=== PATIENT | male | born 1940 | race Caucasian/White ===

== ENCOUNTER → 2016-06-29 | Outpatient (CLI) | payer MEDICARE, BC ==
--- NOTE | 2016-06-29 15:02 | RADRPT ---
PROCEDURE: XR bilateral knees. CLINICAL INDICATION: Knee pain TECHNIQUE: Three views of each knee are available for review. COMPARISON: None available FINDINGS: Right knee: There is severe osteoarthrosis involving the right medial tibial femoral compartment and mild osteoa rthrosis involving the patellofemoral compartment .This is associated with joint space narrowing, baig bchondral sclerosis and osteophytosis. Left knee: There is moderate to severe osteoarthrosis involving the left medial tibial femoral compartment and mild osteoarthrosis involving the patellofemoral compartment. This is associated with joint space na rrowing, subchondral sclerosis and osteophytosis. There is otherwise normal mineralization, architecture and alignment. No fractures are identified. No osseous lesions are identified. The soft tissues are unremarkable. IMPRESSION: Severe osteoarthrosis involving the right medial tibial femoral compartment and mild osteoarthrosis involving the patellofemoral compartment Moderate to severe osteoarthrosis involving the left medial tibial femoral compartment and mild oste oarthrosis involving the patellofemoral compartment. RPTAT: HGDB .Feliciano Horowitz MD, Date Time Electronically viewed and signed by .Feliciano Horowitz MD, on 06/29/2016 15:01 .B/
== END | disposition home or self-care (01) ==
LOC: HKI 14:09
PROVIDERS: ATTEND Orthopaedic Surgery
DX: M17.0 Bilateral primary osteoarthritis of knee (principal); M25.561 Pain in right knee
CPT/HCPCS: 73564; G0463

== ENCOUNTER → 2016-07-13 | Outpatient (CLI) | payer MEDICARE, BC | END | disposition home or self-care (01) | LOC: HKI 08:41 | PROVIDERS: ATTEND Orthopaedic Surgery | DX: Z01.818 Encounter for other preprocedural examination (principal); M17.11 Unilateral primary osteoarthritis, right knee; M25.561 Pain in right knee | CPT/HCPCS: 77073; G0463 ==

== ENCOUNTER 2016-07-21 05:26 | Inpatient (IN) | payer MEDICARE, BC ==
[2016-07-20 08:51] VITALS: BMI 27.8
[~2016-07-21] VITALS: Ht 182.9 cm; Wt 97.0 kg
[2016-07-21] VITALS (23 sets, daily range): BP systolic 98–141; BP diastolic 42–96; PULSE 60–95; RESP 13–20; Ht 182.9 cm; Wt 97.0 kg
[2016-07-21] MEDS ORDERED: traMADOL 50 MG TAB X 1 DOSE PO ONE (06:00)
[2016-07-21] MEDS ORDERED: TRANEXAMIC ACID IV ONE ×2 (06:00→19:30)
[2016-07-21] MEDS ORDERED: CELECOXIB 400 MG PO X1 DOSE PO ONE (06:00)
[2016-07-21] MEDS ORDERED: oxyCODONE (CR) 10 MG TAB [oxyCONTIN] X1 DOSE PO ONE (06:00)
[2016-07-21] MEDS ORDERED: SOD CHLORIDE 0.9% IV ONE ×2 (06:00→19:30)
[2016-07-21] MEDS ORDERED: CEFAZOLIN 2GM/50 ML (PMX) 50 ML X1 BEFORE INCISION IVPB ONE (06:00)
[2016-07-21] MEDS ORDERED: PREGABALIN 300 MG PO X1 PO ONE ×2 (06:30→15:30)
[2016-07-21] MEDS ORDERED: BACITRACIN 50000 UNITS INJ ONE (06:44)
[2016-07-21] MEDS ORDERED: VANCOMYCIN 1 GM INJ ONE ×2 (06:45→08:19)
[2016-07-21] MEDS ORDERED: SODIUM CL BACTERIOSTATIC 30 ML INJ ONE ×2 (06:45→08:19)
[2016-07-21] MEDS ORDERED: POLYMYXIN B 500000 UNIT INJ ONE (06:45)
[2016-07-21] MEDS ORDERED: LORA10TA3 PO (06:46)
[2016-07-21] MEDS ORDERED: LOSA100T7 PO (06:46)
[2016-07-21] MEDS ORDERED: FLUT16SP17 NASAL (06:46)
[2016-07-21] MEDS ORDERED: OMEP20CA16 PO (06:46)
[2016-07-21] MEDS ORDERED: ACYC400T2 PO (06:46)
[2016-07-21] MEDS ORDERED: LIDOCAINE 100 MG SYRINGE ONE (07:11)
[2016-07-21] MEDS ORDERED: NEOSTIGMINE 3 MG/3 ML SYRINGE ONE (07:11)
[2016-07-21] MEDS ORDERED: CEFAZOLIN 1 GM INJ ONE (07:11)
[2016-07-21] MEDS ORDERED: GLYCOPYRROLATE 1 MG INJ ONE (07:11)
[2016-07-21] MEDS ORDERED: ROCURONIUM 50 MG INJ ONE (07:11)
[2016-07-21] MEDS ORDERED: PROPOFOL 100 ML ONE (07:11)
[2016-07-21] MEDS ORDERED: FENTAnyl 50 MCG/ML VIAL ONE (07:12)
[2016-07-21] MEDS ORDERED: ONDANSETRON 4 MG INJ ONE (07:12)
[2016-07-21] MEDS ORDERED: DEXAMETHASONE 4 MG/ML 1 ML INJ ONE (07:12)
[2016-07-21] MEDS ORDERED: MIDAZOLAM 1 MG/ML 2 ML INJ ONE (07:12)
--- NOTE | 2016-07-21 07:15 | HPN ---
Date/Time of Note Date/Time of Note DATE: 07/21/16 TIME: 07:14 Interval H&P Admission Note Pt. seen H&P reviewed: No system changes No change from H&P on 07/13/16 by VERITO Lares MD Jul 21, 2016 07:15
[2016-07-21] MEDS ORDERED: PHENYLephrine (100 MCG/ML) 5ML SYG ONE (07:48)
[2016-07-21] MEDS ORDERED: ONDANSETRON 4 MG INJ IV PRN ×2 (08:30→10:00)
[2016-07-21] MEDS ORDERED: HYDROmorphONE (0.2 MG/ML) 10ML SYG IV PRN ×3 (08:30)
[2016-07-21] MEDS ORDERED: hydrALAzine 20 MG INJ IV PRN (08:30)
[2016-07-21] MEDS ORDERED: EPHEDrine SULFATE 50 MG/5 ML SYG IV PRN (08:30)
[2016-07-21] MEDS ORDERED: TRIMETHOBENZAMIDE 100 MG/ML VIAL IM PRN (08:30)
[2016-07-21] MEDS ORDERED: LABETALOL HCL 20MG INJ IV PRN (08:30)
[2016-07-21] MEDS ORDERED: MIDAZOLAM 1 MG/ML 2 ML INJ IV PRN (08:30)
[2016-07-21] MEDS ORDERED: DIPHENHYDRAMINE 50 MG INJ IV PRN (08:30)
[2016-07-21] MEDS ORDERED: MEPERIDINE 25 MG INJ IV PRN (08:30)
[2016-07-21] MEDS ORDERED: FENTAnyl 50 MCG/ML VIAL IV PRN ×3 (08:30)
[2016-07-21] MEDS: LACTATED RINGER'S 1,000 ML IV SCH ×4 (09:05→19:05)
[2016-07-21] MEDS ORDERED: BUPIVACAINE LIPOSOME/PF 266 MG/20 ML VIAL INFIL SCH ×2 (09:06→15:30)
[2016-07-21] MEDS: PAIN COCKTAIL-CEFUROXIME IRR SCH ×7 (09:06)
[2016-07-21] MEDS ORDERED: EXPAREL NOTE (BUPIVICAINE LIPOSOMAL) XX SCH ×2 (09:30→15:30)
[2016-07-21] MEDS ORDERED: NA PHOSPHATE/BIPHOS 133 ML ENEMA PR PRN (10:00)
[2016-07-21] MEDS ORDERED: oxyCODONE 5 MG TAB PO PRN (10:00)
[2016-07-21] MEDS ORDERED: NACL 0.9% 3 ML SYG IV SCH (10:00)
[2016-07-21] MEDS ORDERED: TRANEXAMIC ACID 960 MG in SOD CHLORIDE 0.9% 100 ML IVPB SCH (10:00)
[2016-07-21] MEDS ORDERED: HYDROmorphONE 1 MG/ML SYG IV PRN (10:00)
[2016-07-21] MEDS ORDERED: DIPHENHYDRAMINE 25 MG CAP PO PRN (10:00)
[2016-07-21] MEDS ORDERED: ASPIRIN (EC) 325 MG TAB PO ONE (10:00)
[2016-07-21] MEDS ORDERED: BISACODYL 10 MG SUPP PR PRN (10:00)
[2016-07-21] MEDS ORDERED: MAGNESIUM HYDROXIDE 30ML CUP PO PRN (10:00)
--- NOTE | 2016-07-21 10:13 | OPPN ---
Date/Time of Note Date/Time of Note DATE: 07/21/16 TIME: 10:11 Operative/Procedure Note Dictation # [id number] Pre-Operative Diagnosis Right Knee OA Post-Operative Diagnosis Same Procedure Right TKA Surgeon: VERITO LOERA MD Dye Range Operator: CB MAS PA-C Anesthesiologist: Raul Ospina M.D. Findings Severe OA Blood Usage/Administration None Implants/Grafts Depuy Attune TKA Estimated blood loss: 50 - 100 ml's Drains Hemovac x 1 Specimens Bone and soft tissue Complications: None Anesthesia type: spinal VERITO LOERA MD Jul 21, 2016 10:13
--- NOTE | 2016-07-21 10:14 | PN ---
Date/Time of Note Date/Time of Note DATE: 07/21/16 TIME: 10:12 Assessment/Plan Lines/Catheters IV Catheter Type (from Nrsg): Peripheral IV Assessment/Plan Assessment/Plan Stable in PACU, s/p right TKA -cont abx -pain meds -ASA/SCDs for DVT prophylaxis -OOB with PT -monitor drain -check AM labs -d/c stern in AM XR of the right knee is pending at this time Subjective 24 Hr Interval Summary Stable in PACU. Denies significant pain. Moving all extremities. Exam/Review of Systems Vital Signs Vitals Vital Signs Date Time Temp Pulse Resp B/P Pulse Ox O2 Delivery O2 Flow Rate FiO2 07/21/16 10:03 97.8 07/21/16 06:00 69 18 132/77 96 Room Air Exam Free Text/Dictation Dressing dry Incision clean, dry, and intact without redness or drainage Thigh soft 5/5 Quadriceps, Tibialis Anterior, EHL, Gastroc, Soleus, Peroneals Normal sensation Palpable DT/PT, CR <2 sec No distal edema Results Result Diagram: 07/21/16 1010 CB MAS PA-C Jul 21, 2016 10:14
[2016-07-21] MEDS: CEFAZOLIN 2 GM/50 ML (PMX) 50 ML IVPB SCH ×2 (10:19→18:11)
[2016-07-21 10:20] LABS: HEMOGLOBIN 14.8 g/dl (14.0-18.0)
[2016-07-21 10:34] LABS: CALCIUM 8.5 mg/dl (8.4-10.2); CREATININE 0.83 mg/dl (0.61-1.24); POTASSIUM 4.8 mmol/L (3.5-5.1)
[2016-07-21 10:40] LABS: ADD UMIC YES; URINE BILIRUBIN (Dip) NEGATIVE (NEGATIVE); URINE BLOOD (Dip) 1+ (NEGATIVE); URINE COLOR LT. YELLOW (YELLOW); URINE GLUCOSE (Dip) NEGATIVE (NEGATIVE); URINE KETONES (Dip) NEGATIVE (NEGATIVE); URINE LEUKOCYTE ESTERASE (Dip) 1+ (NEGATIVE); URINE NITRITE (Dip) NEGATIVE (NEGATIVE); URINE TOTAL PROTEIN (Dip) NEGATIVE (NEGATIVE); URINE UROBILINOGEN (Dip) 0.2 E.U./dL (0.1-1.0)
[2016-07-21 11:09] LABS: BACTERIA,URINE RARE
--- NOTE | 2016-07-21 11:17 | RADRPT ---
PROCEDURE: Right knee x-ray CLINICAL INDICATION: <<Study Reason>> TECHNIQUE: Two views of the right knee were obtained. COMPARISON: No. FINDINGS: The patient is status post total knee replacement . There are postsurgical changes in the subcutane ous soft tissues. There is a surgical drain place with skin kyle noted over the ventral surface of the knee. No effusion is identified. There is normal mineralization. No acute fracture or dislocation is seen. IMPRESSION: 1. Status post total right knee arthroplasty with no evidence of loosening. Postsurgical changes i ncluding subcutaneous emphysema , skin kyle and a drainage tube are noted in place and are unrema rkable. RPTAT:AAJJ Physician Alexsander Date Time Electronically viewed and signed by Physician Alexsander on 07/21/2016 11:17 ADELINA/
--- NOTE | 2016-07-21 11:32 | OPR ---
DATE OF OPERATION: 07/21/2016 PREOPERATIVE DIAGNOSIS: Right knee osteoarthritis. POSTOPERATIVE DIAGNOSIS: Right knee osteoarthritis. OPERATION PERFORMED: Right total knee arthroplasty. SURGEON: Verito Burrell MD HOME STAGER: BRIDGER Mariano COMPONENTS USED: DePuy Attune size 7 femoral component, size 7 tibial baseplate, 8 mm polyethylene insert, and a 38 patellar button. ANESTHESIA: Spinal plus general endotracheal intubation plus periarticular injection. ANESTHESIOLOGIST: Raul Ospina MD TOURNIQUET TIME: 62 minutes. ESTIMATED BLOOD LOSS: 50 mL. INTRAVENOUS FLUIDS: 3 liters of crystalloid. SPECIMENS: Bone and soft tissue. DRAINS: Hemovac x1. COMPLICATIONS: None. DISPOSITION: The patient tolerated the procedure well and was taken to the recovery room in stable condition. INDICATIONS: The patient is a 75-year-old gentleman who has had progressive worsening pain in the r ight knee with radiographic evidence of severe osteoarthritis. He has failed nonsurgical means of t reatment to control his pain including activity modifications, pain medications, intra-articular inj ections and ambulatory assist devices. Despite these measures, he has had worsening pain and I felt he would benefit from a total knee arthroplasty. The risks, benefits, and alternatives of the procedure were explained in detail to the patient. I ex plained the risks of the surgery to include but not be limited to, bleeding and possible need for bl ood transfusion; infection; pain; stiffness; neurovascular injury with possible numbness, weakness, and/or paralysis anywhere from the knee down to the toes; fracture; instability; dislocation; wear a nd/or loosening of the prosthesis and possible need for future revision; blood clots; pulmonary embo lism; and anesthetic complications such as heart attack, stroke, GI bleed, pneumonia, and/or . Ample time was allowed for the patient to ask questions, all of which were addressed and answered. T he patient understood the risks involved and wished to proceed. Informed consent was signed prior to the procedure. PROCEDURE: The patient's right knee was initialed with a marking pen in the preoperative area to id entify the correct operative site. The patient was brought to the operating room and transferred fro [facility] to the operating table where a spinal anesthetic was administered. The patient was then anesthetized and intubated. A York catheter was placed. A timeout was performed to confir m that the right leg was the correct operative site. The patient was given 2 g of Ancef within one h our prior to the procedure. A tourniquet was placed on the operative proximal thigh. The operative k nee and lower extremity were prepped and draped in the usual sterile fashion. The operative lower ex tremity was elevated and exsanguinated with an Esmarch tourniquet. The proximal thigh tourniquet was inflated to 300 mmHg. The knee was flexed. A midline incision was made and carried down through the subcutaneous tissue an d fat with sharp dissection. Limited medial and lateral flaps were raised. A median parapatellar art hrotomy was performed. Synovial fluid was normal in color and consistency. The patella was everted a nd the knee flexed. There were severe tricompartmental osteoarthritic changes noted. A medial releas e was performed at the joint line to the midcoronal plane. The ACL and PCL and remnants of the menis ci were excised. The stepped drill was used to open up the femoral canal which was irrigated and suc ked dry. The intramedullary guide selma was passed up the femur, and the distal cutting block was pinn ed into place for a 6-degree valgus cut, taking 10 mm of bone off distally. The oscillating saw was used to make the cut. The tibia was subluxed anteriorly. The tibial cutoff jig was placed over the center of the talus dis tally and over the junction of the medial and middle third of the tibial tubercle proximally. The gu brenda was pinned into place and the oscillating saw was used to make the cut. The tibia was sized. The extension gap was checked and accommodated the 8 mm spacer block with the knee in full extension. T here was no varus or valgus instability. At this point, the femur was sized with the posterior referencing guide. Two holes were drilled in 3 degrees of external rotation. The two holes were in line with the transepicondylar axis, perpendicu lar to Aurora's line, and in line with the tibial cutoff jig brought up with the knee flexed 90 d egrees and tensed with 2 lamina spreaders, suggesting the femoral rotation was correct. The four-in- one cutting block was pinned into place. The anterior and posterior cuts and chamfer cuts were made with the oscillating saw. The flexion gap was checked and accommodated the 8 mm spacer block at 90 d egrees. There was no varus or valgus instability, suggesting the flexion and extension gaps were now equal. The central box was cut out on the femur. The tibia was drilled and punched in proper rotation. Tria l components were placed into position with a trial insert. The patella was cut from 26 mm down to 1 5 mm and sized. Three holes were drilled and the trial button placed in position. With all the trial s now in place, the knee was taken through range of motion and came to full extension as evidenced b y the fact that with the foot on my abdomen and axial loading, there was no tendency for the knee to flex. The knee was able to be flexed to 125 degrees with good patellar tracking with no lateral til t or subluxation. At this point, I was satisfied with the overall range of motion, stability, and patellar tracking. The trials were removed. The real components were opened. Two bags of cement were mixed, one with an d one without premixed antibiotic. The knee was irrigated with antibiotic saline and sucked dry. Onc e the cement was in a doughy stage, the real components were cemented into place. The knee was held in full extension, and the patellar component was held with a patellar clamp. All excess cement was removed with curettes. As the cement was hardening, the synovial/capsular layer was infiltrated with a mixture of 150 mg of 0.5% Bupivacaine, 8 mg of Duramorph, 300 mcg of epinephrine, 30 mg of [place] l, 100 mcg of clonidine, 750 mg of cefuroxime and 86 mL of normal saline, followed by an injection o f 266 mg of liposomal Bupivacaine. A Hemovac drain was placed in the deep portion of the wound and brought out the anterolateral thigh. Once the cement was completely hardened, the trial liner was removed, and the real insert was opene d. The tourniquet was let down, and there was good hemostasis. The knee was then irrigated with a mi xture of Betadine/saline and then antibiotic saline with pulsatile lavage. The real insert was impac ilia into the tibia and reduced onto to the femur. The arthrotomy was closed with a few interrupted #1 Ethibond in a [id number] fashion, and then closed in a watertight fashion with a running #2 Stratafix suture. Knee flexion was checked against gravity and came to 125 degrees. The subcutaneous layer was irrigated and closed with 2-0 Stratafix, and then 3-0 Stratafix and the skin was closed with kyle. The wound was covered with an occlusi ve dressing, and secured with cast padding and a bias dressing. The drain was secured with 3-0 nylon . The sponge and needle counts were correct at the end of the case. The patient was then awakened, ext ubated, and taken to the recovery room in stable condition. Dictated By: VERITO DAMON/NTS Conf#: [id number] DID#: [id number]
[2016-07-21] MEDS ORDERED: TRANEXAMIC ACID IVPB SCH (13:30)
[2016-07-21] MEDS ORDERED: SOD CHLORIDE 0.9% IVPB SCH (13:30)
--- NOTE | 2016-07-21 13:51 | CONS ---
DATE OF ADMISSION: 07/21/2016 DATE OF CONSULTATION: 07/21/2016 Dr. Burrell: Thank you very much for allowing me to evaluate the above patient who just underwent right knee repl acement. HISTORICAL EVENTS: As you well know, this patient has had progressive disabling pain involving his right knee and for this elected to proceed with surgery. Postoperatively, he notes a slight cough t hat is not productive without wheezing, substernal chest pain, nausea, vomiting, or abdominal pain. MEDICATIONS: 1. Losartan 100 mg per day. 2. Acyclovir 400 mg per day. 3. Claritin 10 mg per day. 4. Omeprazole 20 mg per day. PAST MEDICAL HISTORY: Includes: 1. Hypertension, seasonal allergies, GERD, herpes simplex virus, polio of the left leg. PAST SURGICAL HISTORY: Prior appendectomy at age 14. Cataract surgery bilaterally. FAMILY HISTORY: Positive for lung cancer and pneumonia. SOCIAL HISTORY: Does not smoke, does drink some alcohol. He is a retired in real estate. ALLERGIES: NONE. PHYSICAL EXAMINATION: GENERAL: [place] male in no acute distress. VITAL SIGNS: BP 122/80, pulse 70, respirations are 20, he was afebrile. EYES: Extraocular muscles were full. The right upper eyelid was slightly swollen. NOSE, MOUTH, AND THROAT: Normal. NECK: Supple. There was no jugular venous distention, thyroid enlargement or adenopathy. Carotids 2+. LUNGS: Clear. HEART: Rhythm regular. ABDOMEN: Nontender. Liver and spleen were not palpable. No masses or tenderness were noted. EXTREMITIES: No edema. IMPRESSION: 1. Postoperative right knee replacement, stable. 2. History of hypertension. We will continue ARB and serial BP throughout. 3. Slight swelling involving the right eyelid, will observe. He has been using Cipro eyedrops prio r to admit. 4. History of gastroesophageal reflux disease. Will continue proton pump inhibitors. 5. We will follow daily for signs and symptoms of thromboembolic disease. Despite appropriate DVT prophylaxis. Dictated By: NATHALIE GRANDE/NTS Conf#: [id number] DID#: [id number]
[2016-07-21] MEDS: traMADol 50 MG TAB PO SCH ×2 (14:10→18:11)
[2016-07-21] MEDS: ACETAMINOPHEN 1000MG/100ML IV 100 ML IVPB SCH ×2 (14:10→18:11)
[2016-07-21] MEDS ORDERED: TRANEXAMIC ACID IVPB ONE (14:30)
[2016-07-21] MEDS ORDERED: SOD CHLORIDE 0.9% IVPB ONE (14:30)
[2016-07-21] MEDS ORDERED: LACTATED RINGER'S 1,000 ML IV SCH (15:30)
[2016-07-21] MEDS ORDERED: PAIN COCKTAIL-CEFUROXIME IRR SCH ×7 (15:30)
[2016-07-21] MEDS: PANTOPRAZOLE (EC) 40 MG TAB PO SCH (18:11)
[2016-07-21] MEDS: DOCUSATE SODIUM 100 MG CAP PO SCH (20:27)
[2016-07-21] MEDS: oxyCODONE 5 MG TAB PO PRN (20:28)
[2016-07-21] MEDS: PREGABALIN 25 MG CAP PO SCH (20:29)
[2016-07-22] MEDS: ACETAMINOPHEN 1000MG/100ML IV 100 ML IVPB SCH ×2 (00:13→06:22)
[2016-07-22] MEDS: traMADol 50 MG TAB PO SCH ×4 (00:13→18:09)
[2016-07-22 00:24] VITALS: BP 116/74; PULSE 76; RESP 17
[2016-07-22] MEDS: CEFAZOLIN 2 GM/50 ML (PMX) 50 ML IVPB SCH (02:03)
[2016-07-22] MEDS: oxyCODONE 5 MG TAB PO PRN ×5 (04:14→20:26)
[2016-07-22] MEDS: LACTATED RINGER'S 1,000 ML IV SCH ×4 (05:05→10:55)
[2016-07-22 05:57] LABS: HEMATOCRIT 36.8 % (42.0-52.0); HEMOGLOBIN 12.8 g/dl (14.0-18.0)
[2016-07-22 06:02] LABS: POTASSIUM 4.2 mmol/L (3.5-5.1)
[2016-07-22 06:05] LABS: CALCIUM 8.4 mg/dl (8.4-10.2); CREATININE 0.81 mg/dl (0.61-1.24)
[2016-07-22] MEDS: PANTOPRAZOLE (EC) 40 MG TAB PO SCH ×2 (06:21→18:09)
[2016-07-22 07:50] VITALS: BP 131/76; RESP 18
[2016-07-22] MEDS: PREGABALIN 25 MG CAP PO SCH ×2 (08:26→20:26)
[2016-07-22] MEDS: ASPIRIN (EC) 325 MG TAB PO SCH ×2 (08:27→20:26)
[2016-07-22] MEDS: LOSARTAN 50 MG TAB PO SCH (08:28)
[2016-07-22] MEDS: CELECOXIB 200 MG CAP PO SCH (08:29)
[2016-07-22] MEDS: ACYCLOVIR 400 MG TAB PO SCH (08:29)
[2016-07-22] MEDS: LORATADINE 10 MG TAB PO SCH (08:29)
[2016-07-22] MEDS: DOCUSATE SODIUM 100 MG CAP PO SCH ×2 (08:29→20:26)
--- NOTE | 2016-07-22 08:38 | CONS ---
Date/Time of Note Date/Time of Note DATE: 07/22/16 TIME: 08:35 Assessment/Plan Assessment/Plan Additional Assessment/Plan 1. Postoperative right knee replacement, stable. 2. History of hypertension, controlled 3. Slight swelling involving the right eyelid, improved and will resume cipro eye drops 4. History of gastroesophageal reflux disease, asx Consultation Date/Type/Reason Admit Date/Time Jul 21, 2016 at 05:26 Initial Consult Date Detailed Summary ENT: discharge (right uppper eye lid is less swollen and red) Respiratory: No cough Cardiovascular: no complaints Gastrointestinal: no complaints Genitourinary: no complaints Musculoskeletal: bone/joint pain (mild right knee pain) Exam/Review of Systems Vital Signs Vitals Vital Signs Date Time Temp Pulse Resp B/P Pulse Ox O2 Delivery O2 Flow Rate FiO2 07/22/16 07:50 99.0 90 18 131/76 94 07/22/16 00:24 Nasal Cannula 2.0 Intake and Output 07/21/16 07/21/16 07/22/16 15:00 23:00 07:00 Intake Total 3200 ml 2079.7 ml 2059.7 ml Output Total 565 ml 2735 ml 2700 ml Balance 2635 ml -655.3 ml -640.3 ml Exam Eyes: No other (mild redness and swelling right upper lid) Neck: No jvd Respiratory: clear to auscultation Cardiovascular: regular rate and rhythm Gastrointestinal: soft Extremities: No edema (and no calf tend bilat) Results Result Diagram: 07/22/16 0440 07/22/16 0440 Results 24 hrs Laboratory Tests Test 07/21/16 10:00 07/21/16 10:10 07/22/16 04:40 Urine Bacteria RARE Urine Bilirubin NEGATIVE Urine Clarity CLEAR Urine Color LT. YELLOW Urine Glucose NEGATIVE Urine Hemoglobin 1+ H Urine Ketones NEGATIVE Urine Leukocyte Esterase 1+ H Urine Microscopic RBC 2-5 Urine Microscopic WBC 0-2 Urine Nitrite NEGATIVE Urine Specific [place] <=1.005 L Urine Total Protein NEGATIVE Urine Urobilinogen 0.2 E.U./dL Urine pH 6.0 Anion Gap 15 13 Blood Urea Nitrogen 14 16 Calcium Level 8.5 8.4 Carbon Dioxide Level 26 27 Chloride Level 104 104 Creatinine 0.83 0.81 Glucose Level 121 96 Hematocrit 43.0 36.8 L Hemoglobin 14.8 12.8 L Potassium Level 4.8 4.2 Sodium Level 140 140 Medications Medications Current Medications Lactated Ringer's (Lr) 1,000 ml @ 100 mls/hr Q10H IV ; Start 07/21/16 at 09:05 Bupivacaine Liposome (Exparel 266 Mg/ 20 ml Vial) 266 mg INTRA-OP INFIL Last administered on 07/21/16 09:06; Admin Dose 266 MG; Start 07/21/16 at 09:06 Miscellaneous Information 1 ea NOTE XX ; Start 07/21/16 at 09:30 Acyclovir (Zovirax) 400 mg DAILY PO Last administered on 07/22/16 08:29; Admin Dose 400 MG; Start 07/22/16 at 09:00 Loratadine (Claritin) 10 mg DAILY PO Last administered on 07/22/16 08:29; Admin Dose 10 MG; Start 07/22/16 at 09:00 Losartan Potassium 100 mg 100 mg DAILY PO Last administered on 07/22/16 08:28 ; Admin Dose 100 MG; Start 07/22/16 at 09:00 Lactated Ringer's (Lr) 1,000 ml @ 125 mls/hr Q8H IV Last administered on 06:22; Admin Dose 125 MLS/HR; Start 07/21/16 at 09:56 Celecoxib 200 mg 200 mg DAILY PO Last administered on 07/22/16 08:29; Admin Dose 200 MG; Start 07/22/16 at 09:00 Acetaminophen (Ofirmev 1000mg/ 100ml Iv) 100 ml @ 400 mls/hr Q6 IVPB Last administered on 07/22/16 06:22; Admin Dose 400 MLS/HR; Start 07/21/16 at 12:00 ; Stop 07/22/16 at 11:59 Tramadol HCl (Ultram) 50 mg Q6 PO Last administered on 07/22/16 06:21; Admin Dose 50 MG; Start 07/21/16 at 12:00; Stop 07/24/16 at 11:59 Oxycodone HCl (Roxicodone) 5 mg Q4H PRN PO PAIN LEVEL 1-3; Start 07/21/16 at 10 :00 Oxycodone HCl (Roxicodone) 10 mg Q4H PRN PO PAIN LEVEL 4-7 Last administered on 07/22/16 08:27; Admin Dose 10 MG; Start 07/21/16 at 10:00 Hydromorphone HCl (Dilaudid) 1 mg Q3H PRN IV PAIN LEVEL 8-10; Start 07/21/16 at 10:00 Ondansetron HCl (Zofran Inj) 4 mg Q6H PRN IV NAUSEA AND/OR VOMITING; Start at 10:00 Bisacodyl (Dulcolax Supp) 10 mg Q12H PRN [place] CONSTIPATION; Start 07/21/16 at 10: 00 Magnesium Hydroxide (Milk Of Mag) 30 ml BID PRN PO CONSTIPATION; Start at 10:00 Sodium Biphosphate/ Sodium Phosphate (Fleet Enema) 133 ml DAILY PRN [place] CONSTIPATION; Start 07/21/16 at 10:00 Docusate Sodium (Colace) 100 mg BID PO Last administered on 07/22/16 08:29; Admin Dose 100 MG; Start 07/21/16 at 21:00 Diphenhydramine HCl (Benadryl) 25 mg Q6H PRN PO PRURITUS; Start 07/21/16 at 10: 00 Aspirin (Ecotrin) 325 mg BID PO Last administered on 07/22/16 08:27; Admin Dose 325 MG; Start 07/22/16 at 09:00 Pantoprazole (Protonix Tab) 40 mg BID@06,18 PO Last administered on 07/22/16 06:21; Admin Dose 40 MG; Start 07/21/16 at 18:00 Pregabalin (Lyrica) 50 mg BID PO Last administered on 07/22/16 08:26; Admin Dose 50 MG; Start 07/21/16 at 21:00 NATHALIE NARVAEZ MD Jul 22, 2016 08:38
--- NOTE | 2016-07-22 08:40 | PN ---
Date/Time of Note Date/Time of Note DATE: 07/22/16 TIME: 08:39 Assessment/Plan Lines/Catheters IV Catheter Type (from Nrsg): Peripheral IV York in Place (from Nrsg): Yes Assessment/Plan Assessment/Plan Stable POD #1, s/p right TKA -d/c abx -pain meds -ASA/SCDs -OOB with PT -drain removed -check AM labs -d/c planning. Patient would like to go to [facility] Subjective 24 Hr Interval Summary Doing well. No acute overnight events. Denies any pain. Made excellent progress with PT. VSS, afebrile. Would like to go to [facility] upon discharge. Exam/Review of Systems Vital Signs Vitals Vital Signs Date Time Temp Pulse Resp B/P Pulse Ox O2 Delivery O2 Flow Rate FiO2 07/22/16 07:50 99.0 90 18 131/76 94 07/22/16 00:24 Nasal Cannula 2.0 Intake and Output 07/21/16 07/21/16 07/22/16 15:00 23:00 07:00 Intake Total 3200 ml 2079.7 ml 2059.7 ml Output Total 565 ml 2735 ml 2700 ml Balance 2635 ml -655.3 ml -640.3 ml Exam Free Text/Dictation Hemovac: 400cc Dressing dry Incision clean, dry, and intact without redness or drainage Thigh soft 5/5 Quadriceps, Tibialis Anterior, EHL, Gastroc, Soleus, Peroneals Normal sensation Palpable DT/PT, CR <2 sec No distal edema Results Result Diagram: 07/22/1643907/22/16439 CB MAS PA-C Jul 22, 2016 08:40
[2016-07-22] MEDS: CIPROFLOXACIN 0.3% 2.5 ML OPH RIGHT EYE SCH ×4 (11:04→20:27)
[2016-07-22 16:20] LABS: ADD UMIC YES; URINE BILIRUBIN (Dip) NEGATIVE (NEGATIVE); URINE BLOOD (Dip) 1+ (NEGATIVE); URINE COLOR LT. YELLOW (YELLOW); URINE GLUCOSE (Dip) NEGATIVE (NEGATIVE); URINE KETONES (Dip) NEGATIVE (NEGATIVE); URINE LEUKOCYTE ESTERASE (Dip) TRACE (NEGATIVE); URINE NITRITE (Dip) NEGATIVE (NEGATIVE); URINE TOTAL PROTEIN (Dip) NEGATIVE (NEGATIVE); URINE UROBILINOGEN (Dip) 0.2 E.U./dL (0.1-1.0)
[2016-07-22 16:32] LABS: BACTERIA,URINE FEW
[2016-07-22 20:03] VITALS: BP 124/70; RESP 19
[2016-07-23] MEDS: traMADol 50 MG TAB PO SCH ×3 (00:07→12:38)
[2016-07-23] MEDS: oxyCODONE 5 MG TAB PO PRN ×4 (00:34→13:34)
[2016-07-23] MEDS: PANTOPRAZOLE (EC) 40 MG TAB PO SCH (05:15)
[2016-07-23 06:09] LABS: HEMATOCRIT 38.4 % (42.0-52.0); HEMOGLOBIN 13.3 g/dl (14.0-18.0)
[2016-07-23 06:14] LABS: POTASSIUM 4.5 mmol/L (3.5-5.1)
[2016-07-23 06:17] LABS: CREATININE 0.87 mg/dl (0.61-1.24)
[2016-07-23 06:18] LABS: CALCIUM 8.5 mg/dl (8.4-10.2)
[2016-07-23 08:06] VITALS: BP 140/86; RESP 20
[2016-07-23] MEDS: CIPROFLOXACIN 0.3% 2.5 ML OPH RIGHT EYE SCH ×2 (08:53→12:39)
[2016-07-23] MEDS: CELECOXIB 200 MG CAP PO SCH (08:53)
[2016-07-23] MEDS: DOCUSATE SODIUM 100 MG CAP PO SCH (08:54)
[2016-07-23] MEDS: LORATADINE 10 MG TAB PO SCH (08:54)
[2016-07-23] MEDS: PREGABALIN 25 MG CAP PO SCH (08:55)
[2016-07-23] MEDS: ASPIRIN (EC) 325 MG TAB PO SCH (08:55)
[2016-07-23] MEDS: LOSARTAN 50 MG TAB PO SCH (08:55)
[2016-07-23] MEDS: ACYCLOVIR 400 MG TAB PO SCH (08:56)
--- NOTE | 2016-07-23 11:20 | PN ---
Date/Time of Note Date/Time of Note DATE: 07/23/16 TIME: 11:18 Assessment/Plan Lines/Catheters IV Catheter Type (from Nrsg): Saline Lock York in Place (from Nrsg): No Assessment/Plan Assessment/Plan Stable POD #2, s/p right TKA -pain meds -ASA/SCDs -OOB with PT -dressing changed -d/c home today -follow up in the office on 07/31/16 Subjective 24 Hr Interval Summary Doing well. No acute overnight events. Denies pain. Would like to go home instead of [facility]. Exam/Review of Systems Vital Signs Vitals Vital Signs Date Time Temp Pulse Resp B/P Pulse Ox O2 Delivery O2 Flow Rate FiO2 07/23/16 08:06 98.6 80 20 140/86 97 07/22/16 00:24 Nasal Cannula 2.0 Intake and Output 07/22/16 07/22/16 07/23/16 15:00 23:00 07:00 Intake Total 2620 ml 900 ml Output Total 750 ml 1100 ml Balance 1870 ml -200 ml Exam Free Text/Dictation Dressing dry Incision clean, dry, and intact without redness or drainage Thigh soft 5/5 Quadriceps, Tibialis Anterior, EHL, Gastroc, Soleus, Peroneals Normal sensation Palpable DT/PT, CR <2 sec No distal edema Results Result Diagram: 07/23/1642907/23/16429 CB MAS PA-C Jul 23, 2016 11:19
--- NOTE | 2016-07-23 11:21 | PDOCDIS ---
Discharge Instructions DIAGNOSIS Discharge Diagnosis: s/p right TKA CONDITION Patient Condition: Good HOME CARE INSTRUCTIONS: Diet Instructions: Regular ACTIVITY: Activity Restrictions: Slowly Increase Activity Rest between Activity Avoid heavy lifting No Sexual Activity Do not operate Machinery Do not operate Power Tool Avoid Heavy Housework Keep Limb Elevated Bathing Restrictions: Shower FOLLOW UP/APPOINTMENTS Appointments follow up in the office on 07/31/16 OTHER ORDERS: Other Orders: S/P TKA Physical Therapy: Three times per week at home x 2 weeks Daily in Rehab/SNF (if applicable0 WB STATUS: WBAT 1. Strengthening exercises for both upper and un-operated lower extremities. 2. Gait training with front wheeled walker 3. Active range of motion exercises to operative knee. 4. When not working on knee range of motion exercises, distal towel roll under operative ankle/distal calf to promote full extension. 5. DO NOT PUT ANYTHING BEHIND OPERATIVE KNEE!!! 6. Quadriceps and hamstring strengthening. 7. May switch to cane in contra lateral hand 6 weeks after surgery. 8. Physical Therapy can open case if nursing is not available. 9. Use Ice Machine as instructed from date of surgery while at rest 3X/day. 10. Patient requires mobile SCDs to reduce risk of developing DVT following TKA. Patient will use the mobile SCDs for 30 days postoperatively. Bathing assistance by home health aide twice weekly if Medicare patient. Occupational Therapy: Evaluation for assistive devices and ADL training. Wound Care: Keep incision dry & covered with Tegaderm until first visit with Dr. Burrell Anticoagulation Orders: Enteric Coated Aspirin 325 mg po bid x 6 weeks from date of surgery Follow-up:Call for an appointment with Dr. Burrell in 1 week after discharged from hospital at DME Orders: FWW, 3-in-1 Commode, Polar ice machine, Mobile SCDs CB MAS PA-C Jul 23, 2016 11:20
[2016-07-23] MEDS ORDERED: LYRI25 PO (11:22)
[2016-07-23] MEDS ORDERED: ASPI325T32 PO (11:22)
[2016-07-23] MEDS ORDERED: HYDR-905 PO (11:22)
[2016-07-23] MEDS ORDERED: PANT40TA4 PO (11:22)
[2016-07-23] MEDS ORDERED: TRAM50TA2 PO (11:22)
--- NOTE | 2016-07-23 12:25 | CONS ---
Date/Time of Note Date/Time of Note DATE: 07/23/16 TIME: 12:24 Assessment/Plan Assessment/Plan Additional Assessment/Plan 1. Postoperative right knee replacement, stable, labs rev 2. History of hypertension, controlled 3. History of gastroesophageal reflux disease, asx 4. OK to dc per ortho and PT Consultation Date/Type/Reason Admit Date/Time Jul 21, 2016 at 05:26 Detailed Summary Respiratory: No cough, No shortness of breath Cardiovascular: No chest pain Gastrointestinal: no complaints Genitourinary: no complaints Musculoskeletal: bone/joint pain (mild right knee pain) Exam/Review of Systems Vital Signs Vitals Vital Signs Date Time Temp Pulse Resp B/P Pulse Ox O2 Delivery O2 Flow Rate FiO2 07/23/16 08:06 98.6 80 20 140/86 97 07/22/16 00:24 Nasal Cannula 2.0 Intake and Output 07/22/16 07/22/16 07/23/16 15:00 23:00 07:00 Intake Total 2620 ml 900 ml Output Total 750 ml 1100 ml Balance 1870 ml -200 ml Exam Neck: No jvd Respiratory: clear to auscultation Cardiovascular: regular rate and rhythm Gastrointestinal: soft Extremities: No edema (and no calf tend) Results Result Diagram: 07/23/16 0430 07/23/16 0430 Results 24 hrs Laboratory Tests Test 07/23/16 04:30 Anion Gap 11 Blood Urea Nitrogen 15 Calcium Level 8.5 Carbon Dioxide Level 29 Chloride Level 106 Creatinine 0.87 Glucose Level 95 Hematocrit 38.4 L Hemoglobin 13.3 L Potassium Level 4.5 Sodium Level 141 Medications Medications Current Medications Bupivacaine Liposome (Exparel 266 Mg/ 20 ml Vial) 266 mg INTRA-OP INFIL Last administered on 07/21/16 09:06; Admin Dose 266 MG; Start 07/21/16 at 09:06 Miscellaneous Information 1 ea NOTE XX ; Start 07/21/16 at 09:30 Acyclovir (Zovirax) 400 mg DAILY PO Last administered on 07/23/16 08:56; Admin Dose 400 MG; Start 07/22/16 at 09:00 Loratadine (Claritin) 10 mg DAILY PO Last administered on 07/23/16 08:54; Admin Dose 10 MG; Start 07/22/16 at 09:00 Losartan Potassium (Cozaar) 100 mg DAILY PO Last administered on 07/23/16 08: 55; Admin Dose 100 MG; Start 07/22/16 at 09:00 Celecoxib (Celebrex) 200 mg DAILY PO Last administered on 07/23/16 08:53; Admin Dose 200 MG; Start 07/22/16 at 09:00 Tramadol HCl (Ultram) 50 mg Q6 PO Last administered on 07/23/16 06:21; Admin Dose 50 MG; Start 07/21/16 at 12:00; Stop 07/24/16 at 11:59 Oxycodone HCl (Roxicodone) 5 mg Q4H PRN PO PAIN LEVEL 1-3; Start 07/21/16 at 10 :00 Oxycodone HCl (Roxicodone) 10 mg Q4H PRN PO PAIN LEVEL 4-7 Last administered on 07/23/16 08:57; Admin Dose 10 MG; Start 07/21/16 at 10:00 Hydromorphone HCl (Dilaudid) 1 mg Q3H PRN IV PAIN LEVEL 8-10; Start 07/21/16 at 10:00 Ondansetron HCl (Zofran Inj) 4 mg Q6H PRN IV NAUSEA AND/OR VOMITING; Start at 10:00 Bisacodyl (Dulcolax Supp) 10 mg Q12H PRN [place] CONSTIPATION; Start 07/21/16 at 10: 00 Magnesium Hydroxide (Milk Of Mag) 30 ml BID PRN PO CONSTIPATION; Start at 10:00 Sodium Biphosphate/ Sodium Phosphate (Fleet Enema) 133 ml DAILY PRN [place] CONSTIPATION; Start 07/21/16 at 10:00 Docusate Sodium (Colace) 100 mg BID PO Last administered on 07/23/16 08:54; Admin Dose 100 MG; Start 07/21/16 at 21:00 Diphenhydramine HCl (Benadryl) 25 mg Q6H PRN PO PRURITUS; Start 07/21/16 at 10: 00 Aspirin (Ecotrin) 325 mg BID PO Last administered on 07/23/16 08:55; Admin Dose 325 MG; Start 07/22/16 at 09:00 Pantoprazole (Protonix Tab) 40 mg BID@06,18 PO Last administered on 07/23/16 05:15; Admin Dose 40 MG; Start 07/21/16 at 18:00 Pregabalin (Lyrica) 50 mg BID PO Last administered on 07/23/16 08:55; Admin Dose 50 MG; Start 07/21/16 at 21:00 Ciprofloxacin HCl (Ciloxan 0.3% Oph) 2 drop QID RIGHT EYE Last administered on 07/23/16 08:53; Admin Dose 2 DROP; Start 07/22/16 at 09:00 NATHALIE NARVAEZ MD Jul 23, 2016 12:25
--- NOTE | 2016-07-24 10:19 | DS ---
DATE OF ADMISSION: 07/21/2016 DATE OF DISCHARGE: 07/23/2016 CONDITION UPON DISCHARGE: Stable. ADMITTING DIAGNOSIS: Painful right knee secondary to advanced osteoarthritis. DISCHARGE DIAGNOSIS: Status post right total knee arthroplasty. PROCEDURE PERFORMED: Right total knee arthroplasty. HOSPITAL COURSE: This is a 75-year-old male who was seen in the clinic initially complaining of right knee pain. He had undergone conservative modalities unsuccessfully and it is thought he would benefit from right total knee arthroplasty. On 07/21/2016, the patient was admitted and taken to the operating room where he underwent a right total knee arthroplasty. There were no intraoperative complications. The patient tolerated the procedure well. He was taken to the recovery room in stable condition. Pain was well controlled with oral pain medication. He was started on aspirin and SCDs for DVT prophylaxis. He remained hemodynamically stable and neurovascularly intact throughout his hospital stay. On postoperative day 0/1, he began physical therapy and continued to make good progress. He was deemed clinically stable for discharge on postoperative day 2. Prior to discharge, the incision was inspected and noted to be clean, dry and intact. Dressing changes were done prior to the patient going home. LABORATORY ANALYSIS UPON DISCHARGE: Hemoglobin was 13.3, hematocrit 38.4. Chemistry panel was within normal limits. DISCHARGE MEDICATIONS: 1. [place] 7.5/325 mg. 2. Tramadol 50 mg. 3. Protonix 40 mg. 4. Lyrica 50 mg. 5. Aspirin 325 mg. Additionally, the patient is to resume all of his normal home medications. DISCHARGE INSTRUCTIONS: The patient will be discharged home in stable condition. He is to resume a normal diet. Activity includes weightbearing as tolerated on right lower extremity. He will begin physical therapy with home health. He will be discharged home with the medications noted above and is to resume all of his normal home medications. He is to call the office or return to the emergency room for any concerns including increased redness, swelling, drainage, fever or any concerns regarding the operation or site of incision. FOLLOWUP: The patient is to follow up in the office with Dr. Burrell on 2016. Dictated By: CB SPARKS for VERITO BEE/ELANA Conf#: [id number] DID#: [id number] [facility]
== END 2016-07-23 14:10 | disposition home or self-care (01) | DRG 470 ==
LOC: REC 05:26 → MS1 11:23
PROVIDERS: ADMIT Orthopaedic Surgery; ATTEND Orthopaedic Surgery
PROC: 0SRC0J9 Replacement of Right Knee Joint with Synthetic Substitute, Cemented, Open Approach (ICD-10-PCS; principal; 2016-07-21 07:00)
DX: M17.11 Unilateral primary osteoarthritis, right knee (principal); I10 Essential (primary) hypertension; K21.9 Gastro-esophageal reflux disease without esophagitis; H02.843 Edema of right eye, unspecified eyelid
CPT/HCPCS: 73560; 80048; 81001; 81003; 85014; 85018; 86850; 86900; 86901; 86920; 87081; 87086; 88304; 88311; 97110; 97116; 97163; 97166; 97530; Z7610; C1776; C9290; J0131; J0171; J0690; J0697; J0735; J1100; J1885; J2001; J2250; J2274; J2370; J2405; J2710; J3010; J3370; J7120

== ENCOUNTER → 2016-07-31 | Outpatient (CLI) | payer MEDICARE, BC ==
[~2016-07-31] MED LIST: ACYC400T2 PO; ASPI325T32 PO; FLUT16SP17 NASAL; HYDR-905 PO; LORA10TA3 PO; LOSA100T7 PO; LYRI25 PO; OMEP20CA16 PO; PANT40TA4 PO; TRAM50TA2 PO
--- NOTE | 2016-07-31 10:15 | RADRPT ---
PROCEDURE: XR right knee. CLINICAL INDICATION: Knee pain. TECHNIQUE: AP and lateral weightbearing views are available for review. COMPARISON: 07/21/2016 FINDINGS: There are skin kyle anteriorly. There is a total knee replacement. There is no evidence of loosening of the prosthesis. The osseous structures are normal in mineralization, architecture and alignment No acute fracture or dislocation is seen.No osseous lesions are identified. There is a suprapatellar joint effusion. There is mild soft tissue swelling . IMPRESSION: Unremarkable total knee replacement. Suprapatellar joint effusion RPTAT: HGDB .Feliciano Horowitz MD, Date Time Electronically viewed and signed by .Feliciano Horowitz MD, on 07/31/2016 10:14 .B/
--- NOTE | 2016-07-31 11:57 | HKNOTE ---
DATE OF SERVICE: 07/31/2016 INTERVAL HISTORY: The patient presents today for his first postoperative evaluation on his right knee. He is now 10 days status post right total knee arthroplasty. He is doing well overall. He is progressing with physical therapy. He denies significant pain, but is taking his pain medication regularly. Denies any fevers or chills. There is no pus or drainage. He presents today for evaluation. PHYSICAL EXAMINATION: GENERAL: Today he is alert and oriented x4, and in no acute distress. EXTREMITIES: Examination of the incision demonstrates it to be clean, dry and intact. There is some mild ecchymosis, but no erythema or warmth. Compartments are otherwise soft. Homans sign is negative. He is neurovascularly intact distally. IMAGING: X-rays of the right knee were obtained today and reviewed by me. They show good anatomic location of the right knee prosthesis. No fracture or dislocation identified. ASSESSMENT: Ten days status post right total knee arthroplasty. DISCUSSION: The kyle were removed today and Steri-Strips were applied. We refilled his [place], 7.5/325 mg and Tramadol 50 mg prescriptions today. A quantity of 60 each was given. He is to continue physical therapy with home health and will transition to outpatient physical therapy. If he has any adverse events, he will call the office. Otherwise, we will see him in 4 weeks for repeat evaluation. Dictated By: BC SPARKS for VERITO BEE/ELANA Conf#: [id number] DID#: [id number] MTDD
== END | disposition home or self-care (01) ==
LOC: HKI 09:04
PROVIDERS: ATTEND Orthopaedic Surgery
DX: Z47.1 Aftercare following joint replacement surgery (principal); Z96.651 Presence of right artificial knee joint

== ENCOUNTER → 2016-08-26 | Outpatient (CLI) | payer MEDICARE, BC | END | disposition home or self-care (01) | LOC: HKI 09:21 | PROVIDERS: ATTEND Orthopaedic Surgery | DX: Z47.1 Aftercare following joint replacement surgery (principal); M17.11 Unilateral primary osteoarthritis, right knee; Z96.651 Presence of right artificial knee joint; I10 Essential (primary) hypertension ==

== ENCOUNTER → 2016-10-07 | Outpatient (CLI) | payer MEDICARE, BC ==
--- NOTE | 2016-10-08 09:20 | RADRPT ---
PROCEDURE: XR right knee. CLINICAL INDICATION: Knee pain. TECHNIQUE: AP weightbearing, lateral weightbearing and sunrise views are available for review. COMPARISON: 07/31/2016 FINDINGS: There is a total knee replacement. There is no evidence of loosening of the prosthesis. There is no evidence of hardware failure. The osseous structures are normal in mineralization, architecture and alignment No acute fracture or dislocation is seen.No osseous lesions are identified. The soft tiss ues are unremarkable . there is a small suprapatellar joint effusion. IMPRESSION: Unremarkable total knee replacement. Small suprapatellar joint effusion RPTAT: HGDB .Feliciano Hoorwitz MD, MD Date Time Electronically viewed and signed by .Feliciano Horowitz MD, on 10/08/2016 09:19 .B/
== END | disposition home or self-care (01) ==
LOC: HKI 09:13
PROVIDERS: ATTEND Orthopaedic Surgery
DX: Z47.1 Aftercare following joint replacement surgery (principal); M17.11 Unilateral primary osteoarthritis, right knee; Z96.651 Presence of right artificial knee joint